=== PATIENT | male | born 1960 | race Caucasian/White ===

== ENCOUNTER 2025-06-03 14:46 | Emergency (ER) | payer MEDICAID ==
[~2025-06-03] VITALS: Ht 172.7 cm; Wt 54.4 kg
[2025-06-03 14:50] VITALS: TEMP 98
[2025-06-03 15:30] LABS: PLATELET COUNT (AUTO) 411 K/uL (150-450); RED BLOOD CELL COUNT(AUTO) 4.49 MIL/uL (4.5-6.0); RED CELL DISTRIBUTION WIDTH 18.3 % (11.5-15.0); WHITE BLOOD COUNT (AUTO) 7.0 K/uL (4.3-11.0)
[2025-06-03 15:54] LABS: CALCIUM, SERUM 8.7 mg/dL (8.5-10.1); CREATININE 1.1 mg/dL (0.6-1.3); NT-PRO BNP 4678 pg/mL (0-125); SODIUM SERUM 133 mmol/L (136-145); UREA NITROGEN, BLOOD 15 mg/dL (7-18)
[2025-06-03] MEDS ORDERED: IOHEXOL-350 100 ML VIAL IV ONE (15:58)
[2025-06-03] MEDS ORDERED: IV NS 0.9% 250 ML IV ONE (15:59)
[2025-06-03 16:20] LABS: EOSINOPHILS % (MANUAL) 10 % (0-4); LYMPHOCYTES % (MANUAL) 26 % (16-48); MONOCYTES % (MANUAL) 6 % (0-11.0); NEUTROPHILS % (MANUAL) 58 (42-76); PLATELET ESTIMATE DECREASED
[2025-06-03 17:22] VITALS: BP 151/69; O2SAT 97
== END 2025-06-03 17:35 | disposition left against medical advice (07) ==
LOC: ER 14:48
DX: G45.9 Transient cerebral ischemic attack, unspecified (principal); R47.1 Dysarthria and anarthria; R53.1 Weakness; E78.5 Hyperlipidemia, unspecified; I11.0 Hypertensive heart disease with heart failure; I50.9 Heart failure, unspecified; I70.90 Unspecified atherosclerosis; J44.9 Chronic obstructive pulmonary disease, unspecified
CPT/HCPCS: 99285; 70498; 71045; 93005; 70496; 85027; 80048; 83735; 85007; 36415; 84439; 84443; 84484 ×2; 83880; J7050; Q9967